=== PATIENT | female | born 1995 | race Two or more races ===

== ENCOUNTER 2020-07-09 02:42 | Emergency (ER) | payer OTHER ==
[~2020-07-09] VITALS: Ht 165.1 cm; Wt 93.5 kg
--- NOTE | 2020-07-09 03:19 | NUR ---
PT PRESENTS TO THE ER WITH VAGINAL BLEEDING AFTER PASSING A BLOOD CLOT. PT IS HOOKED UP TO MONITORS AND IN HOSPITAL GOWN. PT IS HAVING SOME CRAMPING WITH THIS BLEEDING. PT STATED SHE THOUGHT SHE MIGHT HAVE BEEN HAVING HER PERIOD WITH LIGHT BLEEDING BEFORE SHE PASSED THE CLOT. SHE HAS ALSO HAD A MISCARRAGE IN THE PAST AND THOUGHT THIS FELT LIKE THAT. ERP AT BEDSIDE, PT RESTING COMFORTABLY ON GURNEY
[2020-07-09] MEDS ORDERED: ONDANSETRON ODT 4 MG ONE (03:24)
[2020-07-09] MEDS ORDERED: ONDANSETRON ODT 4 MG PO ONE (03:30)
[2020-07-09 03:39] LABS: BASOPHILS % (AUTO) 1 % (0-1); EOSINOPHILS % (AUTO) 1 % (1-7); LYMPHOCYTES % (AUTO) 22 % (22-44); MEAN CORPUSCULAR HEMOGLOBIN 20.4 pg (27.0-34.8); MEAN CORPUSCULAR HGB CONC 31.5 g/dL (32.4-35.8); MEAN PLATELET VOLUME 8.2 fL (7.4-10.4); MONOCYTES % (AUTO) 8 % (2-9); NEUTROPHILS % (AUTO) 69 % (42-75); PLATELET COUNT 308 x10^3/uL (130-400); RED BLOOD COUNT 5.18 x10^6/uL (3.82-5.3); RED CELL DISTRIBUTION WIDTH 16.9 % (9.6-15.2)
[2020-07-09 03:48] LABS: ALANINE AMINOTRANSFERASE 23 U/L (12-78); ALBUMIN 3.7 g/dL (3.4-5.0); ANION GAP 7 mmol/L (5-15); CALCIUM 8.7 mg/dL (8.5-10.1); CHLORIDE 109 mmol/L (98-107); CREATININE 0.64 mg/dL (0.55-1.02)
[2020-07-09 03:52] LABS: ALKALINE PHOSPHATASE 48 U/L (45-117); BILIRUBIN,TOTAL 0.2 mg/dL (0.2-1.0); TOTAL PROTEIN 7.4 g/dL (6.4-8.2)
[2020-07-09 04:11] LABS: MD MORPH REVIEW ONLY
[2020-07-09 04:12] LABS: ANISOCYTOSIS 1+; OVALOCYTES 1+
[2020-07-09 04:13] LABS: HYPOCHROMIA 1+; MICROCYTOSIS 2+
--- NOTE | 2020-07-09 04:24 | NUR ---
PT RETURNED FROM US, RESTING COMFORTABLY ON GURNEY, STILL FEELING CRAMPING, DENIES NEEDS AT THIS TIME
[2020-07-09 04:26] LABS: <PLATELET ESTIMATE> ADEQUATE; <PLT MORPHOLOGY> NORMAL PLT MORPH
--- NOTE | 2020-07-09 05:02 | NUR ---
PT RESTING COMFORTABLY ON GURNEY, DENIES NEEDS AT THIS TIME.
[2020-07-09 05:03] VITALS: BP 109/60
--- NOTE | 2020-07-09 05:50 | NUR ---
Patient given discharge instructions and they have confirmed that they understand the instructions. Patient ambulatory with steady gait. No s/s of distress at this time
== END 2020-07-09 05:52 | disposition home or self-care (01) ==
LOC: ED 05:20
DX: N83.291 Other ovarian cyst, right side (principal); N93.8 Other specified abnormal uterine and vaginal bleeding; D50.0 Iron deficiency anemia secondary to blood loss (chronic); F17.210 Nicotine dependence, cigarettes, uncomplicated
CPT/HCPCS: 36415; 76830; 80053; 84703; 85025; 99284; 99406; Q0162